=== PATIENT | male | born 1990 | race Caucasian/White ===

== ENCOUNTER 2018-09-21 12:32 | Inpatient (IN) | payer MEDICAID, OTHER ==
--- NOTE | 2018-09-21 13:46 | EDPHY ---
H & P Stated Complaint: WITH PD [place] SELF INFLICTED LAC L WRIST Time Seen by Provider: 09/21/18 13:29 HPI/ROS: CHIEF COMPLAINT: M1 psychiatric hold HISTORY OF PRESENT ILLNESS: The patient is brought in on M1 psychiatric hold. He reportedly was fighting with his father home secondary to stress he is experiencing from his learning disability. The patient reportedly put a knife to his wrist and did superficial cutting. Patient denies any prior psychiatric diagnoses. He takes no psychiatric medications. The patient denies active suicidal thoughts currently. The patient denies any acute medical complaints. REVIEW OF SYSTEMS: A comprehensive 10 point review of systems is otherwise negative aside from elements mentioned in the history of present illness. Source: Patient Exam Limitations: No limitations - Personal History Current Tetanus Diphtheria and Acellular Pertussis (TDAP): Yes - Medical/Surgical History Hx Asthma: No Hx Chronic Respiratory Disease: No Hx Diabetes: No Hx Cardiac Disease: No Hx Renal Disease: No Hx Cirrhosis: No Hx Alcoholism: No Hx HIV/AIDS: No Hx Splenectomy or Spleen Trauma: No Other PMH: denies - Social History Smoking Status: Never smoked - Physical Exam Exam: General Appearance: Alert, no distress Eyes: Pupils equal and round no pallor or injection ENT, Mouth: Nasal swelling Respiratory: There are no retractions, lungs are clear to auscultation Cardiovascular: Regular rate and rhythm Gastrointestinal: Abdomen is soft and nontender, no masses, bowel sounds normal Neurological: A&O, normal motor function, normal sensory exam, normal cranial nerves Skin: Superficial skin cutting pedraza noted to wrist bilaterally Musculoskeletal: Neck is supple nontender Extremities: symmetrical, full range of motion Constitutional: Initial Vital Signs Temperature (C) 36.4 C 09/21/18 12:43 Heart Rate 61 09/21/18 12:43 Respiratory Rate 16 09/21/18 12:43 Blood Pressure 110/52 L 09/21/18 12:43 O2 Sat (%) 94 09/21/18 12:43 O2 Delivery Mode Room Air Allergies/Adverse Reactions: hydrogen peroxide Allergy (Verified 09/21/18 12:41) Home Medications: Medication Instructions Recorded NK [No Known Home Meds] 09/21/18 Medical Decision Making ED Course/Re-evaluation: The patient has been medically cleared for psychiatric evaluation. I reviewed his laboratory studies and urine test. The patient has no evidence of a suturable laceration from his self injurious behaviors. The patient was medically cleared for psychiatric evaluation and ultimately was evaluated by the psychiatric team. Patient has been kept on M1 psychiatric hold and will be admitted to [facility]'s inpatient psychiatric unit by Dr. Indra Cuello. I have filled out the EMTALA transfer form. Differential Diagnosis: Differential diagnosis considered includes suicidal ideation, psychosis, bipolar mood disorder - Data Points Laboratory Results: Laboratory Results 09/21/18 12:59 09/21/18 12:59 09/21/18 09/21/18 09/21/18 13:28 12:59 12:59 WBC 4.90 10^3/uL 10^3/uL (3.80-9.50) RBC 4.80 10^6/uL 10^6/uL (4.40-6.38) Hgb 15.5 g/dL g/dL (13.7-17.5) Hct 44.9 % % (40.0-51.0) MCV 93.5 fL fL (81.5-99.8) MCH 32.3 pg pg (27.9-34.1) MCHC 34.5 g/dL g/dL (32.4-36.7) RDW 12.6 % % (11.5-15.2) Plt Count 202 10^3/uL 10^3/uL (150-400) MPV 11.2 fL fL (8.7-11.7) Neut % (Auto) 55.8 % % (39.3-74.2) Lymph % (Auto) 29.7 % % (15.0-45.0) [place] % (Auto) 10.0 % % (4.5-13.0) Eos % (Auto) 3.7 % % (0.6-7.6) Baso % (Auto) 0.6 % % (0.3-1.7) Nucleat RBC Rel Count 0.0 % % (0.0-0.2) Absolute Neuts (auto) 2.75 10^3/uL 10^3/uL (1.70-6.50) Absolute Lymphs (auto) 1.46 10^3/uL 10^3/uL (1.00-3.00) Absolute Monos (auto) 0.49 10^3/uL 10^3/uL (0.30-0.80) Absolute Eos (auto) 0.18 10^3/uL 10^3/uL (0.03-0.40) Absolute Basos (auto) 0.03 10^3/uL 10^3/uL (0.02-0.10) Absolute Nucleated RBC 0.00 10^3/uL 10^3/uL (0-0.01) Immature Gran % 0.2 % % (0.0-1.1) Immature Gran # 0.01 10^3/uL 10^3/uL (0.00-0.10) Sodium 140 mEq/L mEq/L (135-145) Potassium 3.9 mEq/L mEq/L (3.5-5.2) Chloride 111 mEq/L H mEq/L (97-110) Carbon Dioxide 20 mEq/l L mEq/l (22-31) Anion Gap 9 mEq/L mEq/L (6-14) BUN 16 mg/dL mg/dL (7-23) Creatinine 0.8 mg/dL mg/dL (0.7-1.3) Estimated GFR > 60 Glucose 68 mg/dL L mg/dL (70-100) Calcium 8.9 mg/dL mg/dL (8.5-10.4) Urine Opiates Screen NEGATIVE (NEGATIVE) Urine Barbiturates NEGATIVE (NEGATIVE) Ur Phencyclidine Scrn NEGATIVE (NEGATIVE) Ur Amphetamine Screen NEGATIVE (NEGATIVE) U Benzodiazepines Scrn NEGATIVE (NEGATIVE) Urine Cocaine Screen NEGATIVE (NEGATIVE) U Marijuana (THC) Screen NEGATIVE (NEGATIVE) Departure - Departure Disposition: [facility] IP Clinical Impression: Suicidal ideation Condition: Good
[2018-09-21 13:49] LABS: PLATELET COUNT 202 10^3/uL (150-400)
--- NOTE | 2018-09-21 18:57 | ASMTTCLDSP ---
TLC Discharge Disposition Disposition: Answers: Admit Discharge Concerns/Recommendations: Notes: In consultation with [facility] ED physician, Sean Bañuelos MD and on-call psychiatrist, Indra Cuello MD, both concurred that pt appears to meet 27-65 criteria requiring psychiatric hospitalization as pt appears to be at risk of harm to self due to a mental illness condition. For inpatient Indra Cuello MD admission, the following psychiatrist agreed to accept patient for admission to Behavioral Health ([facility]): Date Signed: 09/21/2018 06:56 PM Electronically Signed By:Edie Parmar
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
[2018-09-21] MEDS ORDERED: NICOTINE POLACRILEX 2 MG GUM B PRN (21:52)
[2018-09-21] MEDS ORDERED: MAGNESIUM HYDROXIDE 30 ML UDCUP PO PRN (21:52)
[2018-09-21] MEDS ORDERED: MAG HYDROX/AL HYDROX/SIMETH 30 ML UDCUP PO PRN (21:52)
[2018-09-21] MEDS ORDERED: ACETAMINOPHEN 325 MG TAB PO PRN (21:52)
[2018-09-21] MEDS ORDERED: OLANZapine 5 MG TAB PO PRN (21:52)
[2018-09-21] MEDS ORDERED: LORazepam 0.5 MG TAB PO PRN (21:52)
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
--- NOTE | 2018-09-22 08:57 | PDMN ---
Medical Necessity Medical necessity: [facility] [id number] Anxiety Disorders (excluding Posttraumatic Stress Disorder), Adult: Inpatient Care, 2 days: 28 yo w/ generalized anxiety d/o and unspecified depressive disorder, risk of harm to self, M1 hold, admit to Behavioral Health Unit.
--- NOTE | 2018-09-22 15:53 | ASMTCMCOM ---
CM Note CM Note Notes: CC meets with client during check in. Client is alert, responsive towards questions, affect is appropriate towards situation. Client was able to sign IGOR for MHP. CC sent off referral and waiting for follow up information. Date Signed: 09/22/2018 03:53 PM Electronically Signed By:Codey Murcia
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
--- NOTE | 2018-09-23 12:24 | ASMTCMCOM ---
CM Note CM Note Notes: CC was able to out-reach [facility] at [phone] to confirm family meeting for tomorrow at 11am with CC, client and provider. Provider notified.* Date Signed: 09/23/2018 12:23 PM Electronically Signed By:Codey Murcia
--- NOTE | 2018-09-23 13:55 | SOAPPROG ---
DENG Progress Note Assessment/Plan: Assessment: Plan: 09/23/18 13:55 Pt is calm and cooperative. There has been no observation of acute mental illness. He refuses to consider treatment for ADHD. Family meeting is scheduled for tomorrow. CC will contact APS if this has not already been done by [facility]. Subjective: Pt seen, discussed with staff, interviewed in Treatment Team meeting. Reports feeling "great." Notes no problems of any kind. I reviewed with him again my impression of ADHD and he rejects this. He gives an explanation that is not readily understood by team. He declines consideration of any medications or other treatment for ADHD stating he wants to hire a language tutor. He is open to the idea of finding a therapist "to help me deal with the stress of this learning disorder." Objective: Vital Signs Temp Pulse Resp BP Pulse Ox 36.5 C 63 18 89/60 L 94 09/23/18 06:00 09/23/18 06:00 09/23/18 06:00 09/23/18 06:00 09/23/18 06:00 MSE: Calm, coop. Affect is euthymic, stable, approp. Mood is "great." TP is linear. TC reveals some idiosyncrasy though no overt psychosis. Denies SI/HI/ . - Time Spent With Patient Time Spent With Patient: 25" ICD10 Worksheet Patient Problems: Problems Problem Status Onset Suicidal ideation Acute
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
--- NOTE | 2018-09-23 15:35 | ASMTBHDC ---
Notes Note: Notes: CC confirmed all necessary follow up apts: Follow up with: Dr. Panchito Tyson [address] [facility], [address] [address] Next appointment - Friday (09/29/18) @ 9:00am [facility] [address], [facility] Intake Appt: Thursday, September 28 (09/28/18) at 2:30pm with Aditi (on the 2nd floor at the location listed above). Additional Resources: Counseling services are available to registered CCD students from the [facility] and our locations at [place] and the [facility]. The Counseling Center is located in [facility], room [address] and each student is eligible for up to eight sessions each academic year. Services include: stress management grief support self-care support anxiety support Call [phone] or stop by the [facility], [address] to schedule an appointment. [facility] [address] is open Friday through , 8:30 a.m. - 5:00 p.m. We are currently closed on Fridays. Date Signed: 09/23/2018 03:35 PM Electronically Signed By:Codey Murcia
[2018-09-24 06:54] VITALS: BP 86/50
== END 2018-09-24 12:10 | disposition home or self-care (01) | DRG 881 ==
LOC: BBEH 21:20
PROVIDERS: ADMIT Psychiatry & Neurology Psychiatry; ATTEND Psychiatry & Neurology Psychiatry
DX: F32.9 Major depressive disorder, single episode, unspecified (principal); L70.0 Acne vulgaris; F90.9 Attention-deficit hyperactivity disorder, unspecified type
CPT/HCPCS: 80305